=== PATIENT | female | born 1975 | race Caucasian/White ===

== ENCOUNTER 2023-02-12 21:26 | Emergency (ER) | payer OTHER ==
[2023-02-12 21:32] VITALS: TEMP 98.9
[2023-02-12] MEDS ORDERED: SODIUM CHLORIDE 0.9% 1,000 ML IV STA (23:40)
[2023-02-12] MEDS: KETOROLAC 15 MG/ML 1 ML VIAL IVP STA (23:53)
[2023-02-13] MEDS ORDERED: MORPHINE SULFATE 4 MG/ML SYRINGE IVP STA (00:05)
[2023-02-13 00:36] LABS: Appearance,Urine Clear (Clear); Bilirubin,Urine Negative (Negative); Blood,Urine Negative (Negative); Glucose,Urine (UA) Negative (Negative); Ketones,Urine Trace (Negative); Leukocyte Esterase,Urine Negative (Negative); Mucus,Urine Rare /hpf; Nitrite,Urine Negative (Negative); Protein,Urine 1+ (Negative); RBC,Urine 1 /hpf (0-5); Squamous Epithelial Cell,Urine 4 /hpf (0-4); WBC,Urine 1 /hpf (0-5)
[2023-02-13 00:41] LABS: Color,Urine Yellow
[2023-02-13 00:48] LABS: Basophils % (A) 0 %; Eosinophils # (A) 0.2 k/uL (0-0.7); Eosinophils % (A) 3 %; HCT 36.1 % (34.0-46.0); HGB 12.3 gm/dL (11.4-16.0); Lymphocytes # (A) 2.3 k/uL (1.0-4.8); Lymphocytes % (A) 31 %; MCH 31.8 pg (25.0-35.0); MCHC 34.1 g/dL (31.0-37.0); MCV 93.2 fL (80.0-100.0); Mean Platelet Volume 8.7; Monocytes # (A) 0.5 k/uL (0-1.0); Monocytes % (A) 7 %; Neutrophils # (A) 4.2 k/uL (1.3-7.7); Neutrophils % (A) 58 %; Platelet Count 212 k/uL (150-450); RBC 3.88 m/uL (3.80-5.40); WBC 7.3 k/uL (3.8-10.6)
[2023-02-13] MEDS: KETOROLAC 15 MG/ML 1 ML VIAL IVP STA (00:50)
[2023-02-13 01:14] LABS: ALT 23 U/L (4-34); AST 28 U/L (14-36); African American GFR (CKD) >90 (>60 ml/min/1.73 sqM); Albumin 4.4 g/dL (3.5-5.0); Alkaline Phosphatase 93 U/L (38-126); Anion Gap 11 mmol/L; Blood Urea Nitrogen 9 mg/dL (7-17); Calcium 9.1 mg/dL (8.4-10.2); Carbon Dioxide 25 mmol/L (22-30); Chloride 100 mmol/L (98-107); Glucose 92 mg/dL (74-99); Non-African American GFR(CKD) >90 (>60 ml/min/1.73 sqM); Potassium 3.6 mmol/L (3.5-5.1); Sodium 136 mmol/L (137-145); Total Bilirubin 0.8 mg/dL (0.2-1.3); Total Protein 7.7 g/dL (6.3-8.2)
--- NOTE | 2023-02-13 01:33 | ED ---
Abdominal Pain HPI - General Chief Complaint: Abdominal Pain Stated Complaint: Stomach Cramping, Lethargic, Dizzy Time Seen by Provider: 02/12/23 23:31 Source: patient Mode of arrival: ambulatory Limitations: no limitations - History of Present Illness Initial Comments: 47-year-old female presenting with chief complaint of pelvic cramping. Symptoms have been ongoing for the last 5 days. Patient was seen by her PCP on Wednesday and ordered a pelvic ultrasound. Ultrasound was scheduled for Wednesday, however patient states that the pain was worsening and she cannot wait for the appointment. Cramping is worse on the left side. She admits to intermittent nausea with no vomiting. No vaginal bleeding or discharge. No dysuria, hematuria, flank pain. No chest pain or difficulty breathing. No fevers or chills. - Related Data Previous Rx's Medication Instructions Recorded Amoxic-Pot Clav 875-125Mg 1 tab PO Q12HR 10 Days #20 tab 02/13/23 [Augmentin 875-125] Ondansetron Odt [Zofran Odt] 4 mg PO Q8HR PRN #20 tab 02/13/23 Allergies Allergy/AdvReac Type Severity Reaction Status Date / Time azithromycin Allergy Nausea & Verified 02/12/23 21:31 Vomiting Review of Systems ROS Statement: Those systems with pertinent positive or pertinent negative responses have been documented in the HPI. ROS Other: All systems not noted in ROS Statement are negative. Past Medical History Additional Past Medical History / Comment(s): 2019 [facility], slipped disc in neck, torn ligament in right elbow History of Any Multi-Drug Resistant Organisms: None Reported Past Surgical History: Ablation, Section Past Psychological History: No Psychological Hx Reported Smoking Status: Vaper Past Alcohol Use History: None Reported Past Drug Use History: None Reported General Exam Limitations: no limitations General appearance: alert, in no apparent distress Head exam: Present: atraumatic, normocephalic, normal inspection Eye exam: Present: normal appearance, EOMI Neck exam: Present: normal inspection, full ROM Respiratory exam: Present: normal lung sounds bilaterally. Absent: respiratory distress, wheezes, rales, rhonchi, stridor Cardiovascular Exam: Present: regular rate, normal rhythm, normal heart sounds. Absent: systolic murmur, diastolic murmur, rubs, gallop, clicks GI/Abdominal exam: Present: soft, tenderness (Pelvic tenderness). Absent: distended, guarding, rebound, rigid Neurological exam: Present: alert, oriented X3, CN II-XII intact Psychiatric exam: Present: normal affect, normal mood Skin exam: Present: warm, dry, intact, normal color. Absent: rash Course Vital Signs 02/12/23 02/13/23 02/13/23 21:27 00:59 02:35 Temperature 98.9 F Pulse Rate 97 63 74 Respiratory 16 17 19 Rate Blood Pressure 125/86 120/73 125/85 O2 Sat by Pulse 98 97 96 Oximetry 02/13/23 02/13/23 03:06 03:48 Temperature Pulse Rate 67 Respiratory 17 17 Rate Blood Pressure 114/78 115/75 O2 Sat by Pulse 96 Oximetry Medical Decision Making - Medical Decision Making Was pt. sent in by a medical professional or institution (, PA, GUEST SERVICES MANAGER, urgent care, hospital, or care home...) When possible be specific @ -No Did you speak to anyone other than the patient for history (EMS, parent, family, police, friend...)? What history was obtained from this source @ -No Did you review nursing and triage notes (agree or disagree)? Why? @ -I reviewed and agree with nursing and triage notes Were old charts reviewed (outside hosp., previous admission, EMS record, old EKG, old radiological studies, urgent care reports/EKG's, care home records)? Report findings @ -No old charts were reviewed Differential Diagnosis (chest pain, altered mental status, abdominal pain women, abdominal pain men, vaginal bleeding, weakness, fever, dyspnea, syncope, headache, dizziness, GI bleed, back pain, seizure, CVA, palpatations, mental health, musculoskeletal)? @ -MDM Differential Abdominal Pain Women: Appendicitis, Cholecystitis, diverticulosis, ischemic bowel, pancreatitis, hepatitis, UTI, gastroenteritis, AAA, incarcerated hernia, bowel obstruction, constipation, inflammatory bowel, hepatitis, peptic ulcer disease, splenic infarction, perforated viscus, vulvitis, ovarian torsion, PID, kidney stone, placenta abruption... This is not meant to be an all-inclusive list EKG interpreted by me (3pts min.). @ -As above X-rays interpreted by me (1pt min.). @ -None done CT interpreted by me (1pt min.). @ -Uncomplicated acute sigmoid diverticulitis. Postsurgical changes from left nephrectomy. Right lower lobe 4 mm pulmonary nodule. U/S interpreted by me (1pt. min.). @ -The uterus is not identified please correlate was surgical history. The ovaries are not identified presumably related to bowel gas pattern. Mild free fluid noted in the pelvic cul-de-sac. What testing was considered but not performed or refused? (CT, X-rays, U/S, labs)? Why? @ -None What meds were considered but not given or refused? Why? @ -None Did you discuss the management of the patient with other professionals (professionals i.e. DrAbdoul, PA, GUEST SERVICES MANAGER, lab, RT, psych nurse, forensic social worker, tack cleaner, teacher, foreign policy officer, case finisher)? Give summary @ -No Was smoking cessation discussed for >3mins.? @ -No Was critical care preformed (if so, how long)? @ -No Were there social determinants of health that impacted care today? How? (Homelessness, low income, unemployed, alcoholism, drug addiction, transportation, low edu. Level, literacy, decrease access to med. care, halfway, rehab)? @ -No Was there de-escalation of care discussed even if they declined (Discuss DNR or withdrawal of care, Hospice)? DNR status @ -No What co-morbidities impacted this encounter? (DM, HTN, Smoking, COPD, CAD, Cancer, CVA, ARF, Chemo, Hep., AIDS, mental health diagnosis, sleep apnea, morbid obesity)? @ -None Was patient admitted / discharged? Hospital course, mention meds given and route, prescriptions, significant lab abnormalities, going to OR and other pertinent info. @ -47-year-old female presenting with chief complaint of left lower quadrant pain ongoing for 5 days. There is lower abdominal tenderness on physical exam. Lepper shows no leukocytosis or anemia. Urine shows no infectious process. On ultrasound there unable to visualize the ovaries and bowel gas pattern. CT shows diverticulitis. Patient is started on Augmentin. Follow-up with PCP. Report back to ER with any new or worsening symptoms. Discussed return parameters and answered all questions. Patient conveyed verbal understanding an d agreed to the plan. I discussed this case in detail with my attending Dr. Dudley Undiagnosed new problem with uncertain prognosis? @ -No Drug Therapy requiring intensive monitoring for toxicity (Heparin, Nitro, Insulin, Cardizem)? @ -No Were any procedures done? @ -No Diagnosis/symptom? @ -Diverticulitis Acute, or Chronic, or Acute on Chronic? @ -acute Uncomplicated (without systemic symptoms) or Complicated (systemic symptoms)? @ -Uncomplicated Side effects of treatment? @ -No Exacerbation, Progression, or Severe Exacerbation? @ -No Poses a threat to life or bodily function? How? (Chest pain, [place], SD, pneumonia, PE, COPD, DKA, ARF, appy, cholecystitis, CVA, Diverticulitis, Homicidal, Suicidal, threat to staff... and all critical care pts) @ -No - Lab Data Result diagrams: 02/12/23 23:51 02/12/23 23:51 Lab Results 02/12/23 02/12/23 02/12/23 Range/Units 23:51 23:51 23:51 WBC 7.3 (3.8-10.6) k/uL RBC 3.88 (3.80-5.40) m/uL Hgb 12.3 (11.4-16.0) gm/dL Hct 36.1 (34.0-46.0) % MCV 93.2 (80.0-100.0) fL MCH 31.8 (25.0-35.0) pg MCHC 34.1 (31.0-37.0) g/dL RDW 13.0 (11.5-15.5) % Plt Count 212 (150-450) k/uL MPV 8.7 Neutrophils % 58 % Lymphocytes % 31 % Monocytes % 7 % Eosinophils % 3 % Basophils % 0 % Neutrophils # 4.2 (1.3-7.7) k/uL Lymphocytes # 2.3 (1.0-4.8) k/uL Monocytes # 0.5 (0-1.0) k/uL Eosinophils # 0.2 (0-0.7) k/uL Basophils # 0.0 (0-0.2) k/uL Sodium (137-145) mmol/L Potassium (3.5-5.1) mmol/L Chloride (98-107) mmol/L Carbon Dioxide (22-30) mmol/L Anion Gap mmol/L BUN (7-17) mg/dL Creatinine (0.52-1.04) mg/dL Est GFR (CKD-EPI)AfAm (>60 ml/min/1.73 sqM) Est GFR (CKD-EPI)NonAf (>60 ml/min/1.73 sqM) Glucose (74-99) mg/dL Plasma Lactic Acid Wallace (0.7-2.0) mmol/L Calcium (8.4-10.2) mg/dL Total Bilirubin (0.2-1.3) mg/dL AST (14-36) U/L ALT (4-34) U/L Alkaline Phosphatase (38-126) U/L Total Protein (6.3-8.2) g/dL Albumin (3.5-5.0) g/dL Urine Color Yellow Urine Appearance Clear (Clear) Urine pH 8.0 (5.0-8.0) Ur Specific [place] 1.040 H (1.001-1.035) Urine Protein 1+ H (Negative) Urine Glucose (UA) Negative (Negative) Urine Ketones Trace H (Negative) Urine Blood Negative (Negative) Urine Nitrite Negative (Negative) Urine Bilirubin Negative (Negative) Urine Urobilinogen 3.0 (<2.0) mg/dL Ur Leukocyte Esterase Negative (Negative) Urine RBC 1 (0-5) /hpf Urine WBC 1 (0-5) /hpf Ur Squamous Epith Cells 4 (0-4) /hpf Urine Mucus Rare H (None) /hpf Urine HCG, Qual Not Detected (Not Detectd) 02/12/23 02/12/23 Range/Units 23:51 23:51 WBC (3.8-10.6) k/uL RBC (3.80-5.40) m/uL Hgb (11.4-16.0) gm/dL Hct (34.0-46.0) % MCV (80.0-100.0) fL MCH (25.0-35.0) pg MCHC (31.0-37.0) g/dL RDW (11.5-15.5) % Plt Count (150-450) k/uL MPV Neutrophils % % Lymphocytes % % Monocytes % % Eosinophils % % Basophils % % Neutrophils # (1.3-7.7) k/uL Lymphocytes # (1.0-4.8) k/uL Monocytes # (0-1.0) k/uL Eosinophils # (0-0.7) k/uL Basophils # (0-0.2) k/uL Sodium 136 L (137-145) mmol/L Potassium 3.6 (3.5-5.1) mmol/L Chloride 100 (98-107) mmol/L Carbon Dioxide 25 (22-30) mmol/L Anion Gap 11 mmol/L BUN 9 (7-17) mg/dL Creatinine 0.65 (0.52-1.04) mg/dL Est GFR (CKD-EPI)AfAm >90 (>60 ml/min/1.73 sqM) Est GFR (CKD-EPI)NonAf >90 (>60 ml/min/1.73 sqM) Glucose 92 (74-99) mg/dL Plasma Lactic Acid Wallace 0.8 (0.7-2.0) mmol/L Calcium 9.1 (8.4-10.2) mg/dL Total Bilirubin 0.8 (0.2-1.3) mg/dL AST 28 (14-36) U/L ALT 23 (4-34) U/L Alkaline Phosphatase 93 (38-126) U/L Total Protein 7.7 (6.3-8.2) g/dL Albumin 4.4 (3.5-5.0) g/dL Urine Color Urine Appearance (Clear) Urine pH (5.0-8.0) Ur Specific [place] (1.001-1.035) Urine Protein (Negative) Urine Glucose (UA) (Negative) Urine Ketones (Negative) Urine Blood (Negative) Urine Nitrite (Negative) Urine Bilirubin (Negative) Urine Urobilinogen (<2.0) mg/dL Ur Leukocyte Esterase (Negative) Urine RBC (0-5) /hpf Urine WBC (0-5) /hpf Ur Squamous Epith Cells (0-4) /hpf Urine Mucus (None) /hpf Urine HCG, Qual (Not Detectd) Disposition Clinical Impression: Diverticulitis Disposition: HOME SELF-CARE Condition: Good Instructions (If sedation given, give patient instructions): Diverticulitis (ED), Diverticulitis Diet (ED) Additional Instructions: Follow-up with PCP. Report back to ER with any new or worsening symptoms. Take medication as prescribed. Prescriptions: Amoxic-Pot Clav 875-125Mg [Augmentin 875-125] 1 tab PO Q12HR 10 Days #20 tab Ondansetron Odt [Zofran Odt] 4 mg PO Q8HR PRN #20 tab PRN Reason: Nausea And Vomiting Is patient prescribed a controlled substance at d/c from ED?: No Referrals: Nicolasa Moyer FNPBC [Primary Care Provider] - 1-2 days Time of Disposition: 03:39
--- NOTE | 2023-02-13 02:09 | US ---
EXAM: US Pelvis Transabdominal and Transvaginal, Complete CLINICAL HISTORY: Left sided pelvic pain TECHNIQUE: Real-time complete transabdominal and transvaginal pelvic ultrasound with image documentation. Transvaginal imaging was used for better evaluation of the endometrium and adnexa. COMPARISON: No relevant prior studies available. FINDINGS: Uterus/cervix: The uterus is not identified either on transabdominal or endovaginal imaging. Right ovary: The ovaries are not identified transabdominally or endovaginally, presumably related to bowel gas pattern. No adnexal mass. Left ovary: The ovaries are not identified transabdominally or endovaginally, presumably related to bowel gas pattern. No adnexal mass. Free fluid: Mild free fluid noted in the pelvic cul-de-sac. Bladder: Unremarkable as visualized. Wall is normal thickness for degree of distention. IMPRESSION: 1. The uterus is not identified either on transabdominal or endovaginal imaging. Please correlate with surgical history. 2. The ovaries are not identified transabdominally or endovaginally, presumably related to bowel gas pattern. 3. Mild free fluid noted in the pelvic cul-de-sac.
[2023-02-13] MEDS ORDERED: HYDROmorphone 1 MG/ML 1 ML SYRINGE IVP STA (02:28)
[2023-02-13 03:07] VITALS: PULSE 67; RESP 17
--- NOTE | 2023-02-13 03:10 | CT ---
EXAMINATION TYPE: CT abdomen pelvis wo con CT DLP: 385.8 mGycm, Automated exposure control for dose reduction was used. DATE OF EXAM: 02/13/2023 2:54 AM COMPARISON: Pelvic ultrasound 02/13/2023 CLINICAL INDICATION:Female, 47 years old with history of pelvic pain; TECHNIQUE: Standard CT of the abdomen and pelvis without IV or oral contrast. Lack of IV or oral co ntrast limits evaluation of solid and hollow organ viscera. Coronal and sagittal reformats were perfo rmed. FINDINGS: LOWER CHEST: Posterior dependent subsegmental atelectasis is noted. Right lower lobe 4 mm pulmonary n odule (series 4, image 1). ABDOMEN LIVER: Unremarkable noncontrast appearance GALLBLADDER AND BILE DUCTS: Unremarkable noncontrast appearance PANCREAS: Unremarkable noncontrast appearance SPLEEN: Unremarkable noncontrast appearance ADRENAL GLANDS: Unremarkable noncontrast appearance. KIDNEYS AND URETERS: No evidence of hydronephrosis or renal calculus. The left kidney surgically abse nt. No suspicious soft tissue in the nephrectomy bed. PELVIS BLADDER: Incompletely distended but grossly unremarkable. REPRODUCTIVE: The uterus is surgically absent. ABDOMEN & PELVIS STOMACH AND BOWEL: Stomach and duodenum are unremarkable. The appendix is within normal limits. Circu mferential wall thickening with colonic diverticula involving the sigmoid colon. There is surrounding fat stranding. No pericolonic abscess. No evidence of bowel obstruction. PERITONEUM: No evidence of pneumoperitoneum. Trace free fluid in the pelvis. VASCULATURE: No evidence of aortic aneurysm. MUSCULOSKELETAL: No acute osseous abnormalities LYMPH NODES: No gross evidence for lymphadenopathy. SOFT TISSUE/ABDOMINAL WALL: Tiny fat filled umbilical hernia. IMPRESSION: 1. Uncomplicated acute sigmoid diverticulitis. 2. Postsurgical changes from left nephrectomy. 3. Right lower lobe 4 mm pulmonary nodule. In a low-risk patient, no follow-up is recommended. In a h igh-risk patient, consider optional CT chest in 12 months.
[2023-02-13] MEDS ORDERED: AMOXIC-POT CLAV 875-125MG 1 EACH TAB PO STA (03:39)
[2023-02-13 03:49] VITALS: BP 115/75
== END 2023-02-13 03:49 | disposition home or self-care (01) ==
LOC: EC 21:26
DX: K57.32 Diverticulitis of large intestine without perforation or abscess without bleeding (principal); F17.290 Nicotine dependence, other tobacco product, uncomplicated; Z88.6 Allergy status to analgesic agent
CPT/HCPCS: 36415; 80053; 83605; 85025; 81001; 81025; 76856; 76830; 74176; 99284; 96374; 96375; 96361; J2270; J1170